=== PATIENT | male | born 1965 ===

== ENCOUNTER 2019-10-17 23:42 | Emergency (ER) | payer SELFPAY ==
[~2019-10-17] VITALS: Ht 165.1 cm; Wt 88.0 kg
--- NOTE | 2019-10-18 01:23 | NUR ---
pt back to room from lobby
--- NOTE | 2019-10-18 01:37 | NUR ---
PT RESPORTS BACK PAIN STARTING YESTERDAY, PER TRIAGE PT FELL TODAY. DENIES LOC, DENIES TRAUMA. PT REPORTS NO OTHER C/O AT THIS TIME. PT CONNECTED TO MONITORING, CALL LIGHT WITHIN REACH, ALL SAFETY MEASURES IN PLACE.
[2019-10-18] MEDS ORDERED: HYDROmorphone 1 MG/ML, 1ML INJ IM ONE (02:00)
[2019-10-18] MEDS ORDERED: HYDROmorphone 1 MG/ML, 1ML INJ ONE (02:41)
[2019-10-18 02:48] VITALS: BP 145/79
--- NOTE | 2019-10-18 02:48 | NUR ---
PT RESTING ON GURNEY AND MEDICATED PER MAR ALL NEEDS MET AT THIS TIME.
--- NOTE | 2019-10-18 03:15 | NUR ---
upon discharge pt started to call this rn bad names in macedonian and wanted doctor back in room when the doctor just left room, security called to escort pt out of room
== END 2019-10-18 03:21 | disposition home or self-care (01) ==
LOC: ED 10-18 03:10
DX: M19.90 Unspecified osteoarthritis, unspecified site (principal); M54.5 Low back pain
CPT/HCPCS: 72110; 72131; 72190; 96372; 99284; J1170

== ENCOUNTER 2019-10-20 06:02 | Emergency (ER) | payer OTHER ==
[~2019-10-20] VITALS: Ht 165.1 cm; Wt 88.7 kg
--- NOTE | 2019-10-20 06:23 | NUR ---
Patient presents to ER c/o hip and leg pain. Patient states this is chronic pain but he is from [place] and has not had pain management for five months. Today the pain is worse. Patient is in NAD. Patient ambulates with a steady gait. Respirations even and unlabored.
[2019-10-20] MEDS ORDERED: KETOROLAC 60 MG/2 ML ONE (06:49)
--- NOTE | 2019-10-20 06:51 | NUR ---
BEDSIDE REPORT FROM SHANIQUA NUNEZ, PT RESTING IN [facility]. TO GET MEDICATION AND BE DISCHARGED. PT MEDICATED PER DEC.
[2019-10-20] MEDS ORDERED: KETOROLAC 30 MG/1 ML IM ONE (07:00)
[2019-10-20 07:40] VITALS: BP 157/90
== END 2019-10-20 07:43 | disposition home or self-care (01) ==
LOC: ED 06:30
DX: G89.29 Other chronic pain (principal); M25.551 Pain in right hip; M79.652 Pain in left thigh; M79.651 Pain in right thigh
CPT/HCPCS: 96372; 99283; J1885